=== PATIENT | male | born 1970 | race Two or more races ===

== ENCOUNTER 2017-03-30 15:28 | Inpatient (IN) | payer MEDICAID ==
[~2017-03-30] VITALS: Ht 167.6 cm; Wt 68.8 kg
[2017-03-30] MEDS ORDERED: SODIUM CHLORIDE FLUSH 10ML SYR IVF ONE ×2 (16:00→16:30)
[2017-03-30 16:12] LABS: HEMATOCRIT 30.3 % (39.2-51.8); HEMOGLOBIN 9.8 g/dL (13.7-18.0); WHITE BLOOD COUNT 13.6 x10^3/uL (3.4-10)
[2017-03-30 16:22] LABS: ASPARTATE AMINO TRANSFERASE 99 U/L (15-37); BLOOD UREA NITROGEN 21 mg/dL (7-18)
[2017-03-30] MEDS ORDERED: SODIUM CHLORIDE 0.9% 1,000 ML IV ONE (16:39)
[2017-03-30] MEDS ORDERED: SODIUM CHLORIDE 0.9% 1,000ML IVBOLUS ONE ×2 (17:30→19:30)
[2017-03-30] MEDS ORDERED: POTASSIUM CHLORIDE 40 MEQ in SODIUM CHLORIDE 0.9% 500 ML IV ONE (17:30)
[2017-03-30] MEDS ORDERED: CEFTRIAXONE PMX 1GM/50ML 50 ML IVPB ONE (17:30)
[2017-03-30] MEDS ORDERED: CEFTRIAXONE PMX 1GM/50ML 50 ML ONE (17:30)
[2017-03-30] MEDS ORDERED: NS + 20MEQ KCL 1,000 ML IV SCH (17:38)
[2017-03-30] MEDS: CEFTRIAXONE PMX 1GM/50ML 50 ML IV SCH (17:53)
[2017-03-30] MEDS ORDERED: LORazepam 0.5MG TABLET PO PRN (18:00)
[2017-03-30] MEDS ORDERED: morphine SULFATE 10 MG/ML, 1ML IVPush PRN (18:00)
[2017-03-30] MEDS ORDERED: LORazepam 2 MG/ML, 1ML IV PRN ×3 (18:00)
[2017-03-30] MEDS ORDERED: ALBUMIN HUMAN 25% 50 ML IV ONE (18:00)
[2017-03-30] MEDS ORDERED: LORazepam 1MG TABLET PO PRN ×2 (18:00)
[2017-03-30] MEDS ORDERED: DOCUSATE 100 MG CAPSULE PO PRN (18:00)
[2017-03-30] MEDS ORDERED: LIDOCAINE 1%, 20ML ONE (19:08)
[2017-03-30 21:12] VITALS: BP 93/44
[2017-03-30 21:31] VITALS: BP 89/56
[2017-03-30] MEDS: LACTULOSE 20 GM/30 ML UDC PO SCH (22:46)
[2017-03-30] MEDS: FAMOTIDINE 20 MG TABLET PO SCH (22:46)
[2017-03-30] MEDS: ONDANSETRON 2MG/ML, 2ML IVPush PRN (22:53)
[2017-03-30 23:29] VITALS: BP 89/66
[2017-03-31] VITALS (13 sets, daily range): BP systolic 77–97; BP diastolic 44–74
[2017-03-31] MEDS ORDERED: SODIUM CHLORIDE 0.9% 1,000ML IVBOLUS ONE ×2 (04:00→22:00)
[2017-03-31 06:35] LABS: HEMOGLOBIN 7.4 g/dL (13.7-18.0); WHITE BLOOD COUNT 12.7 x10^3/uL (3.4-10)
[2017-03-31 06:42] LABS: ASPARTATE AMINO TRANSFERASE 86 U/L (15-37); BLOOD UREA NITROGEN 35 mg/dL (7-18)
[2017-03-31 06:48] LABS: HEMATOCRIT 22.9 % (39.2-51.8)
[2017-03-31 07:07] LABS: DIFF TOTAL CELLS COUNTED 100 CELL DIFF
[2017-03-31 07:08] LABS: ANISOCYTOSIS 1+; VERIFY COUNTS? YES
[2017-03-31 07:09] LABS: POLYCHROMASIA 1+
[2017-03-31 07:10] LABS: HYPOCHROMIA 2+
[2017-03-31 07:11] LABS: POIKILOCYTOSIS 1+
[2017-03-31] MEDS: FOLIC ACID 1 MG TABLET PO SCH (09:00)
[2017-03-31] MEDS: THIAMINE 100MG TABLET PO SCH (09:00)
[2017-03-31] MEDS: MULTIVITAMIN 1 TABLET PO SCH (09:00)
[2017-03-31] MEDS: LACTULOSE 20 GM/30 ML UDC PO SCH ×2 (09:00→20:08)
[2017-03-31] MEDS: FAMOTIDINE 20 MG TABLET PO SCH (09:00)
[2017-03-31] MEDS: PANTOPRAZOLE 80 MG in SODIUM CHLORIDE 0.9% 100 ML IV SCH ×2 (10:00→20:26)
[2017-03-31] MEDS ORDERED: EPHEDRINE 50 MG/ML, 1ML IVPush PRN (10:00)
[2017-03-31] MEDS ORDERED: hydrALAzine 20 MG/ML, 1ML IV PRN (10:00)
[2017-03-31] MEDS ORDERED: LABETALOL 5MG/ML, 20ML IV PRN (10:00)
[2017-03-31] MEDS ORDERED: METOPROLOL 1 MG/ML, 5ML IV PRN (10:00)
[2017-03-31] MEDS ORDERED: ONDANSETRON 2MG/ML, 2ML IVPush PRN (10:00)
[2017-03-31] MEDS ORDERED: ALBUTEROL SULFATE 2.5 MG/3 ML NPPB PRN (10:00)
[2017-03-31] MEDS ORDERED: METOCLOPRAMIDE 5 MG/ML, 2ML IV PRN (10:00)
[2017-03-31] MEDS ORDERED: OCTREOTIDE 50 MCG/ML, 1ML (0.05MG/ML) IVPush ONE (10:00)
[2017-03-31] MEDS ORDERED: FENTANYL PF 100 MCG/2ML IV PRN (10:00)
[2017-03-31] MEDS ORDERED: PANTOPRAZOLE 80 MG in SODIUM CHLORIDE 0.9% 50 ML IV ONE (10:00)
[2017-03-31] MEDS ORDERED: FENTANYL PF 250 MCG/5ML ONE (10:21)
[2017-03-31] MEDS ORDERED: LORazepam 2 MG/ML, 1ML IVPush PRN (12:00)
[2017-03-31] MEDS: PHYTONADIONE 10 MG/ML, 1ML SQ SCH (12:00)
[2017-03-31] MEDS: OCTREOTIDE 500 MCG in SODIUM CHLORIDE 0.9% 249 ML IV SCH ×2 (12:45→20:26)
[2017-03-31] MEDS: NS + 20MEQ KCL 1,000 ML IV SCH (15:09)
[2017-03-31] MEDS ORDERED: EPINEPHRINE SYRINGE 0.1 MG/ML, 10ML ONE (15:22)
[2017-03-31] MEDS ORDERED: EPINEPHRINE 1 MG/ML, 1ML ONE (16:06)
[2017-03-31] MEDS ORDERED: SUCCINYLCHOLINE 20 MG/ML, 10ML ONE (16:06)
[2017-03-31] MEDS ORDERED: PROPOFOL 10 MG/ML, 20ML ONE (16:06)
[2017-03-31] MEDS: CEFTRIAXONE PMX 1GM/50ML 50 ML IV SCH (17:48)
[2017-03-31 18:03] LABS: HEMATOCRIT 26.5 % (39.2-51.8); HEMOGLOBIN 8.6 g/dL (13.7-18.0)
[2017-03-31 22:16] LABS: HEMATOCRIT 25.8 % (39.2-51.8); HEMOGLOBIN 8.5 g/dL (13.7-18.0)
[2017-04-01 00:02] VITALS: BP 72/39
[2017-04-01 00:17] VITALS: BP 88/61
[2017-04-01 00:22] VITALS: BP 81/51
[2017-04-01 03:31] VITALS: BP 75/51
[2017-04-01 04:00] VITALS: BP 86/51
[2017-04-01] MEDS ORDERED: NOREPINEPHRINE 4 MG in SODIUM CHLORIDE 0.9% 246 ML IV PRN (04:00)
[2017-04-01] MEDS: PANTOPRAZOLE 80 MG in SODIUM CHLORIDE 0.9% 100 ML IV SCH ×2 (05:55→16:00)
[2017-04-01] MEDS: OCTREOTIDE 500 MCG in SODIUM CHLORIDE 0.9% 249 ML IV SCH ×2 (05:55→16:00)
[2017-04-01 06:39] LABS: HEMATOCRIT 30.8 % (39.2-51.8); HEMOGLOBIN 10.2 g/dL (13.7-18.0); WHITE BLOOD COUNT 11.4 x10^3/uL (3.4-10)
[2017-04-01 06:51] LABS: BLOOD UREA NITROGEN 21 mg/dL (7-18)
[2017-04-01 06:56] LABS: ASPARTATE AMINO TRANSFERASE 103 U/L (15-37)
[2017-04-01] MEDS: NS + 20MEQ KCL 1,000 ML IV SCH (08:00)
[2017-04-01] MEDS ORDERED: [UNRECOGNIZED DRUG - OTHER] IV ONE (08:30)
[2017-04-01] MEDS ORDERED: FOLIC ACID IV ONE (08:30)
[2017-04-01] MEDS ORDERED: MVI ADULT IV ONE (08:30)
[2017-04-01] MEDS ORDERED: THIAMINE IV ONE (08:30)
[2017-04-01] MEDS ORDERED: POTASSIUM CHLORIDE IV ONE (08:30)
[2017-04-01] MEDS: LACTULOSE 20 GM/30 ML UDC PO SCH ×2 (08:57→20:31)
[2017-04-01] MEDS: FOLIC ACID 1 MG TABLET PO SCH (09:00)
[2017-04-01] MEDS: MULTIVITAMIN 1 TABLET PO SCH (09:00)
[2017-04-01] MEDS: THIAMINE 100MG TABLET PO SCH (09:00)
[2017-04-01] MEDS ORDERED: POTASSIUM CHLORIDE 10% 40 MEQ/30 ML UDC PO SCH (09:00)
[2017-04-01] MEDS: PHYTONADIONE 10 MG/ML, 1ML SQ SCH (09:03)
[2017-04-01] MEDS: OXYcodone IR 5MG TABLET PO PRN ×3 (15:37→20:31)
[2017-04-01] MEDS: CEFTRIAXONE PMX 1GM/50ML 50 ML IV SCH (18:47)
[2017-04-01 19:47] VITALS: BP 94/51
[2017-04-02 02:00] VITALS: BP 98/68
[2017-04-02] MEDS: PANTOPRAZOLE 80 MG in SODIUM CHLORIDE 0.9% 100 ML IV SCH ×2 (03:02→13:02)
[2017-04-02] MEDS: OCTREOTIDE 500 MCG in SODIUM CHLORIDE 0.9% 249 ML IV SCH ×2 (03:03→13:02)
[2017-04-02] MEDS: OXYcodone IR 5MG TABLET PO PRN ×2 (03:28→10:23)
[2017-04-02 05:55] LABS: BLOOD UREA NITROGEN 13 mg/dL (7-18)
[2017-04-02 06:00] LABS: ASPARTATE AMINO TRANSFERASE 94 U/L (15-37)
[2017-04-02 06:31] LABS: HEMATOCRIT 31.6 % (39.2-51.8); HEMOGLOBIN 10.3 g/dL (13.7-18.0); WHITE BLOOD COUNT 8.9 x10^3/uL (3.4-10)
[2017-04-02 08:00] VITALS: BP 99/68
[2017-04-02 08:40] VITALS: BP 99/66
[2017-04-02] MEDS: LACTULOSE 20 GM/30 ML UDC PO SCH ×2 (10:19→20:33)
[2017-04-02] MEDS: THIAMINE 100MG TABLET PO SCH (10:24)
[2017-04-02] MEDS: PHYTONADIONE 10 MG/ML, 1ML SQ SCH (10:24)
[2017-04-02] MEDS: MULTIVITAMIN 1 TABLET PO SCH (10:24)
[2017-04-02] MEDS: FOLIC ACID 1 MG TABLET PO SCH (10:24)
[2017-04-02 12:14] VITALS: BP 97/65
[2017-04-02] MEDS ORDERED: LIDOCAINE 1%, 20ML ONE (15:39)
[2017-04-02 17:20] VITALS: BP 104/69
[2017-04-02] MEDS: OMEPRAZOLE 20 MG CAPSULE.DR PO SCH (18:26)
[2017-04-02] MEDS: CEFTRIAXONE PMX 1GM/50ML 50 ML IV SCH (18:38)
[2017-04-02 18:45] LABS: CELLS COUNTED 81; DILUTION 1; WBC SQUARES COUNTED 9
[2017-04-02 19:46] VITALS: BP 92/61
[2017-04-03 02:35] VITALS: BP 92/57
[2017-04-03 05:44] LABS: HEMATOCRIT 31.2 % (39.2-51.8); HEMOGLOBIN 10.2 g/dL (13.7-18.0)
[2017-04-03 05:48] LABS: ASPARTATE AMINO TRANSFERASE 87 U/L (15-37); BLOOD UREA NITROGEN 8 mg/dL (7-18)
[2017-04-03 07:47] VITALS: BP 94/67
[2017-04-03] MEDS: MULTIVITAMIN 1 TABLET PO SCH (07:50)
[2017-04-03] MEDS: OMEPRAZOLE 20 MG CAPSULE.DR PO SCH ×2 (07:50→16:29)
[2017-04-03] MEDS: THIAMINE 100MG TABLET PO SCH (07:50)
[2017-04-03] MEDS: LACTULOSE 20 GM/30 ML UDC PO SCH ×2 (07:50→20:30)
[2017-04-03] MEDS: FOLIC ACID 1 MG TABLET PO SCH (07:50)
[2017-04-03] MEDS: OXYcodone IR 5MG TABLET PO PRN (11:45)
[2017-04-03 13:01] VITALS: BP 103/67
[2017-04-03] MEDS: FUROSEMIDE 40 MG TABLET PO SCH (13:03)
[2017-04-03] MEDS: SPIRONOLACTONE 100 MG TABLET PO SCH (13:03)
[2017-04-03] MEDS: CEFTRIAXONE PMX 1GM/50ML 50 ML IV SCH (17:34)
[2017-04-03 21:05] VITALS: BP 98/65
[2017-04-04 00:51] VITALS: BP 92/56
[2017-04-04 07:10] VITALS: BP 97/69
[2017-04-04] MEDS: OMEPRAZOLE 20 MG CAPSULE.DR PO SCH ×2 (07:38→17:16)
[2017-04-04] MEDS: SPIRONOLACTONE 100 MG TABLET PO SCH (07:38)
[2017-04-04] MEDS: ONDANSETRON 2MG/ML, 2ML IVPush PRN (07:38)
[2017-04-04] MEDS: MULTIVITAMIN 1 TABLET PO SCH (07:39)
[2017-04-04] MEDS: THIAMINE 100MG TABLET PO SCH (07:39)
[2017-04-04] MEDS: LACTULOSE 20 GM/30 ML UDC PO SCH ×2 (07:39→20:32)
[2017-04-04] MEDS: FUROSEMIDE 40 MG TABLET PO SCH (07:39)
[2017-04-04] MEDS: FOLIC ACID 1 MG TABLET PO SCH (07:39)
[2017-04-04] MEDS: OXYcodone IR 5MG TABLET PO PRN ×2 (12:20→17:17)
[2017-04-04 15:40] VITALS: BP 104/73
[2017-04-04] MEDS: CEFTRIAXONE PMX 1GM/50ML 50 ML IV SCH (18:23)
[2017-04-04 20:10] VITALS: BP 94/63
[2017-04-05 03:30] VITALS: BP 90/66
[2017-04-05] MEDS: OXYcodone IR 5MG TABLET PO PRN ×3 (03:41→21:00)
[2017-04-05] MEDS: PROPRANOLOL 10 MG TABLET PO SCH (05:46)
[2017-04-05 05:54] LABS: ASPARTATE AMINO TRANSFERASE 124 U/L (15-37); BLOOD UREA NITROGEN 6 mg/dL (7-18)
[2017-04-05 06:01] LABS: HEMATOCRIT 32.2 % (39.2-51.8); HEMOGLOBIN 10.7 g/dL (13.7-18.0)
[2017-04-05 07:32] VITALS: BP 88/57
[2017-04-05 07:48] VITALS: BP 93/57
[2017-04-05] MEDS: FUROSEMIDE 40 MG TABLET PO SCH (07:49)
[2017-04-05] MEDS: SPIRONOLACTONE 100 MG TABLET PO SCH (07:49)
[2017-04-05] MEDS: THIAMINE 100MG TABLET PO SCH (07:49)
[2017-04-05] MEDS: FOLIC ACID 1 MG TABLET PO SCH (07:50)
[2017-04-05] MEDS: OMEPRAZOLE 20 MG CAPSULE.DR PO SCH ×2 (07:50→17:57)
[2017-04-05] MEDS: LACTULOSE 20 GM/30 ML UDC PO SCH ×2 (07:50→20:55)
[2017-04-05] MEDS: MULTIVITAMIN 1 TABLET PO SCH (07:50)
[2017-04-05] MEDS ORDERED: POTASSIUM CHLORIDE 20 MEQ TAB.ER.PRT PO ONE (11:00)
[2017-04-05 14:54] VITALS: BP 101/72
[2017-04-05] MEDS: CEFTRIAXONE PMX 1GM/50ML 50 ML IV SCH ×2 (17:58→18:43)
[2017-04-05 19:23] VITALS: BP 86/56
[2017-04-05 20:52] VITALS: BP 98/63
[2017-04-06] VITALS (7 sets, daily range): BP systolic 84–120; BP diastolic 51–68
[2017-04-06] MEDS: PROPRANOLOL 10 MG TABLET PO SCH (05:16)
[2017-04-06 05:47] LABS: HEMATOCRIT 32.6 % (39.2-51.8); HEMOGLOBIN 10.9 g/dL (13.7-18.0); WHITE BLOOD COUNT 11.8 x10^3/uL (3.4-10)
[2017-04-06 06:02] LABS: BLOOD UREA NITROGEN 4 mg/dL (7-18)
[2017-04-06] MEDS ORDERED: LIDOCAINE 1%, 20ML ONE (07:23)
[2017-04-06 08:20] LABS: CYTOLOGY BODY FLUID RECD INTO PATHOLOGY; CYTOLOGY BODY FLUID SOURCE PERITONEAL FLUID
[2017-04-06 09:11] LABS: CELLS COUNTED 69; DILUTION 1; WBC SQUARES COUNTED 9
[2017-04-06] MEDS: FUROSEMIDE 40 MG TABLET PO SCH (09:15)
[2017-04-06] MEDS: MULTIVITAMIN 1 TABLET PO SCH (09:15)
[2017-04-06] MEDS: FOLIC ACID 1 MG TABLET PO SCH (09:15)
[2017-04-06] MEDS: OMEPRAZOLE 20 MG CAPSULE.DR PO SCH ×2 (09:15→16:07)
[2017-04-06] MEDS: THIAMINE 100MG TABLET PO SCH (09:15)
[2017-04-06] MEDS: SPIRONOLACTONE 100 MG TABLET PO SCH (09:15)
[2017-04-06] MEDS: LACTULOSE 20 GM/30 ML UDC PO SCH ×2 (09:15→21:07)
[2017-04-06] MEDS: ALBUMIN HUMAN 25% 100 ML IV SCH ×3 (09:16→21:08)
[2017-04-06] MEDS ORDERED: MAGNESIUM SULFATE PMX 2GM/50ML 50 ML IV ONE (10:00)
[2017-04-06] MEDS ORDERED: POTASSIUM CHLORIDE 40 MEQ in SODIUM CHLORIDE 0.9% 500 ML IV ONE (10:00)
[2017-04-06] MEDS: CEFTRIAXONE PMX 1GM/50ML 50 ML IV SCH (18:08)
[2017-04-07 02:45] VITALS: BP 90/60
[2017-04-07] MEDS: ALBUMIN HUMAN 25% 100 ML IV SCH ×4 (04:13→21:07)
[2017-04-07 04:26] VITALS: BP 90/58
[2017-04-07] MEDS: PROPRANOLOL 10 MG TABLET PO SCH (04:31)
[2017-04-07 05:43] LABS: ASPARTATE AMINO TRANSFERASE 101 U/L (15-37); BLOOD UREA NITROGEN 4 mg/dL (7-18)
[2017-04-07 05:45] LABS: HEMATOCRIT 29.6 % (39.2-51.8); HEMOGLOBIN 9.9 g/dL (13.7-18.0); WHITE BLOOD COUNT 8.2 x10^3/uL (3.4-10)
[2017-04-07 08:22] VITALS: BP 92/62
[2017-04-07] MEDS: LACTULOSE 20 GM/30 ML UDC PO SCH ×2 (08:49→21:08)
[2017-04-07] MEDS: THIAMINE 100MG TABLET PO SCH (08:49)
[2017-04-07] MEDS: OXYcodone IR 5MG TABLET PO PRN ×3 (08:49→17:32)
[2017-04-07] MEDS: FUROSEMIDE 40 MG TABLET PO SCH (08:49)
[2017-04-07] MEDS: SPIRONOLACTONE 100 MG TABLET PO SCH (08:49)
[2017-04-07] MEDS: OMEPRAZOLE 20 MG CAPSULE.DR PO SCH ×2 (08:49→17:32)
[2017-04-07] MEDS: FOLIC ACID 1 MG TABLET PO SCH (08:49)
[2017-04-07] MEDS: MULTIVITAMIN 1 TABLET PO SCH (08:49)
[2017-04-07 14:24] VITALS: BP 101/62
[2017-04-07] MEDS: CEFTRIAXONE PMX 1GM/50ML 50 ML IV SCH (18:24)
[2017-04-07 19:37] VITALS: BP 101/61
[2017-04-08 00:43] VITALS: BP 100/62
[2017-04-08 05:21] LABS: HEMATOCRIT 29.8 % (39.2-51.8); HEMOGLOBIN 9.8 g/dL (13.7-18.0); WHITE BLOOD COUNT 7.8 x10^3/uL (3.4-10)
[2017-04-08 05:35] LABS: BLOOD UREA NITROGEN 3 mg/dL (7-18)
[2017-04-08 05:39] LABS: ASPARTATE AMINO TRANSFERASE 80 U/L (15-37)
[2017-04-08] MEDS: PROPRANOLOL 10 MG TABLET PO SCH (06:00)
[2017-04-08] MEDS: OMEPRAZOLE 20 MG CAPSULE.DR PO SCH ×2 (06:34→17:14)
[2017-04-08 07:42] VITALS: BP 102/66
[2017-04-08 09:04] VITALS: BP 108/71
[2017-04-08] MEDS: FUROSEMIDE 40 MG TABLET PO SCH (09:05)
[2017-04-08] MEDS: SPIRONOLACTONE 100 MG TABLET PO SCH (09:05)
[2017-04-08] MEDS: THIAMINE 100MG TABLET PO SCH (09:06)
[2017-04-08] MEDS: MULTIVITAMIN 1 TABLET PO SCH (09:06)
[2017-04-08] MEDS: FOLIC ACID 1 MG TABLET PO SCH (09:06)
[2017-04-08] MEDS: LACTULOSE 20 GM/30 ML UDC PO SCH ×2 (09:06→20:31)
[2017-04-08] MEDS: POTASSIUM CHLORIDE 20 MEQ TAB.ER.PRT PO SCH ×2 (09:56→13:53)
[2017-04-08] MEDS: OXYcodone IR 5MG TABLET PO PRN ×2 (11:37→20:31)
[2017-04-08 12:23] VITALS: BP 111/75
[2017-04-08] MEDS: CEFTRIAXONE PMX 1GM/50ML 50 ML IV SCH (17:17)
[2017-04-08 20:10] VITALS: BP 94/62
[2017-04-09 02:10] VITALS: BP 94/60
[2017-04-09 05:36] LABS: HEMATOCRIT 31.5 % (39.2-51.8); HEMOGLOBIN 10.3 g/dL (13.7-18.0); WHITE BLOOD COUNT 9.5 x10^3/uL (3.4-10)
[2017-04-09 06:04] LABS: ASPARTATE AMINO TRANSFERASE 80 U/L (15-37); BLOOD UREA NITROGEN 3 mg/dL (7-18)
[2017-04-09] MEDS: PROPRANOLOL 10 MG TABLET PO SCH (06:12)
[2017-04-09 06:30] VITALS: BP 106/75
[2017-04-09] MEDS: FOLIC ACID 1 MG TABLET PO SCH (08:03)
[2017-04-09] MEDS: FUROSEMIDE 40 MG TABLET PO SCH (08:03)
[2017-04-09] MEDS: MULTIVITAMIN 1 TABLET PO SCH (08:03)
[2017-04-09] MEDS: OMEPRAZOLE 20 MG CAPSULE.DR PO SCH ×2 (08:03→17:01)
[2017-04-09] MEDS: POTASSIUM CHLORIDE 20 MEQ TAB.ER.PRT PO SCH (08:03)
[2017-04-09] MEDS: THIAMINE 100MG TABLET PO SCH (08:03)
[2017-04-09] MEDS: LACTULOSE 20 GM/30 ML UDC PO SCH ×2 (08:03→21:30)
[2017-04-09] MEDS: SPIRONOLACTONE 100 MG TABLET PO SCH (08:03)
[2017-04-09] MEDS: OXYcodone IR 5MG TABLET PO PRN ×3 (10:22→22:05)
[2017-04-09 13:45] VITALS: BP 95/62
[2017-04-09] MEDS: CEFTRIAXONE PMX 1GM/50ML 50 ML IV SCH (17:57)
[2017-04-09] MEDS ORDERED: FUROSEMIDE 20 MG/2 ML IV ONE (18:00)
[2017-04-09 18:14] VITALS: BP 100/65
[2017-04-09 19:42] VITALS: BP 91/58
[2017-04-10] VITALS (14 sets, daily range): BP systolic 87–106; BP diastolic 42–67
[2017-04-10] MEDS: OXYcodone IR 5MG TABLET PO PRN ×4 (02:17→21:02)
[2017-04-10] MEDS: PROPRANOLOL 10 MG TABLET PO SCH (05:19)
[2017-04-10] MEDS: SPIRONOLACTONE 100 MG TABLET PO SCH (08:49)
[2017-04-10] MEDS: THIAMINE 100MG TABLET PO SCH (08:49)
[2017-04-10] MEDS: OMEPRAZOLE 20 MG CAPSULE.DR PO SCH ×2 (08:50→16:49)
[2017-04-10] MEDS: FOLIC ACID 1 MG TABLET PO SCH (08:50)
[2017-04-10] MEDS: MULTIVITAMIN 1 TABLET PO SCH (08:50)
[2017-04-10] MEDS: FUROSEMIDE 40 MG TABLET PO SCH (08:50)
[2017-04-10] MEDS: LACTULOSE 20 GM/30 ML UDC PO SCH ×2 (08:50→21:01)
[2017-04-10] MEDS: POTASSIUM CHLORIDE 20 MEQ TAB.ER.PRT PO SCH (08:50)
[2017-04-10] MEDS: CEFTRIAXONE PMX 1GM/50ML 50 ML IV SCH (17:24)
[2017-04-10] MEDS: DIPHENHYDRAMINE 50 MG CAPSULE PO PRN (23:31)
[2017-04-11] VITALS (7 sets, daily range): BP systolic 82–99; BP diastolic 49–70
[2017-04-11] MEDS: OXYcodone IR 5MG TABLET PO PRN ×2 (03:39→14:33)
[2017-04-11] MEDS: PROPRANOLOL 10 MG TABLET PO SCH (06:00)
[2017-04-11 06:24] LABS: ASPARTATE AMINO TRANSFERASE 57 U/L (15-37); BLOOD UREA NITROGEN 6 mg/dL (7-18)
[2017-04-11 06:25] LABS: HEMATOCRIT 26.7 % (39.2-51.8); HEMOGLOBIN 8.9 g/dL (13.7-18.0)
[2017-04-11] MEDS: OMEPRAZOLE 20 MG CAPSULE.DR PO SCH ×2 (07:30→17:51)
[2017-04-11] MEDS: SPIRONOLACTONE 100 MG TABLET PO SCH (07:50)
[2017-04-11] MEDS: FUROSEMIDE 40 MG TABLET PO SCH (07:51)
[2017-04-11] MEDS: POTASSIUM CHLORIDE 20 MEQ TAB.ER.PRT PO SCH (08:00)
[2017-04-11] MEDS: FOLIC ACID 1 MG TABLET PO SCH (08:02)
[2017-04-11] MEDS: MULTIVITAMIN 1 TABLET PO SCH (08:02)
[2017-04-11] MEDS: THIAMINE 100MG TABLET PO SCH (08:02)
[2017-04-11] MEDS: LACTULOSE 20 GM/30 ML UDC PO SCH ×2 (08:02→21:06)
[2017-04-11] MEDS ORDERED: MIDAZOLAM 1 MG/ML, 5ML ONE (10:27)
[2017-04-11] MEDS ORDERED: FENTANYL PF 100 MCG/2ML ONE (10:27)
[2017-04-11] MEDS ORDERED: FLUMAZENIL 0.1 MG/1 ML, 5ML ONE (10:28)
[2017-04-11] MEDS ORDERED: NALOXONE 1 MG/ML, 2ML ONE (10:28)
[2017-04-11] MEDS ORDERED: LIDOCAINE 1%, 20ML ONE (10:28)
[2017-04-11] MEDS ORDERED: POTASSIUM CHLORIDE 20 MEQ TAB.ER.PRT PO ONE (10:30)
[2017-04-11] MEDS: CEFTRIAXONE PMX 1GM/50ML 50 ML IV SCH (17:51)
[2017-04-11] MEDS: DIPHENHYDRAMINE 50 MG CAPSULE PO PRN (21:07)
[2017-04-12 03:07] VITALS: BP 96/49
[2017-04-12 05:32] LABS: BLOOD UREA NITROGEN 6 mg/dL (7-18); TOTAL IRON BINDING CAPACITY 166 mcg/dL (250-450)
[2017-04-12] MEDS: PROPRANOLOL 10 MG TABLET PO SCH (06:05)
[2017-04-12] MEDS: OXYcodone IR 5MG TABLET PO PRN ×4 (06:07→17:04)
[2017-04-12 07:29] VITALS: BP 94/65
[2017-04-12] MEDS: OMEPRAZOLE 20 MG CAPSULE.DR PO SCH ×2 (07:44→17:04)
[2017-04-12] MEDS: POTASSIUM CHLORIDE 20 MEQ TAB.ER.PRT PO SCH (07:44)
[2017-04-12] MEDS: FOLIC ACID 1 MG TABLET PO SCH (10:15)
[2017-04-12] MEDS: FUROSEMIDE 40 MG TABLET PO SCH (10:15)
[2017-04-12] MEDS: SPIRONOLACTONE 100 MG TABLET PO SCH (10:15)
[2017-04-12] MEDS: MULTIVITAMIN 1 TABLET PO SCH (10:16)
[2017-04-12] MEDS: LACTULOSE 20 GM/30 ML UDC PO SCH ×2 (10:16→20:56)
[2017-04-12] MEDS: THIAMINE 100MG TABLET PO SCH (10:16)
[2017-04-12 14:12] VITALS: BP 91/53
[2017-04-12 20:00] VITALS: BP 95/69
[2017-04-12] MEDS: DIPHENHYDRAMINE 50 MG CAPSULE PO PRN (20:56)
[2017-04-12] MEDS: RIFAXIMIN 550 MG TABLET PO SCH (20:56)
[2017-04-13 02:52] VITALS: BP 114/67
[2017-04-13] MEDS: OXYcodone IR 5MG TABLET PO PRN ×4 (03:17→19:43)
[2017-04-13] MEDS: PROPRANOLOL 10 MG TABLET PO SCH ×2 (05:08→22:40)
[2017-04-13 05:57] LABS: HEMATOCRIT 30.9 % (39.2-51.8); HEMOGLOBIN 9.9 g/dL (13.7-18.0); WHITE BLOOD COUNT 10.2 x10^3/uL (3.4-10)
[2017-04-13 06:02] LABS: BLOOD UREA NITROGEN 6 mg/dL (7-18)
[2017-04-13 08:15] VITALS: BP 94/62
[2017-04-13] MEDS: LACTULOSE 20 GM/30 ML UDC PO SCH ×2 (08:46→19:43)
[2017-04-13] MEDS: MULTIVITAMIN 1 TABLET PO SCH (08:46)
[2017-04-13] MEDS: OMEPRAZOLE 20 MG CAPSULE.DR PO SCH ×2 (08:46→17:53)
[2017-04-13] MEDS: POTASSIUM CHLORIDE 20 MEQ TAB.ER.PRT PO SCH (08:46)
[2017-04-13] MEDS: FOLIC ACID 1 MG TABLET PO SCH (08:47)
[2017-04-13] MEDS: FUROSEMIDE 40 MG TABLET PO SCH (08:47)
[2017-04-13] MEDS: THIAMINE 100MG TABLET PO SCH (08:47)
[2017-04-13] MEDS: RIFAXIMIN 550 MG TABLET PO SCH ×2 (08:47→19:43)
[2017-04-13] MEDS: SPIRONOLACTONE 100 MG TABLET PO SCH (08:47)
[2017-04-13 14:35] VITALS: BP 99/62
[2017-04-13] MEDS ORDERED: POTASSIUM CHLORIDE 20 MEQ TAB.ER.PRT PO ONE (15:30)
[2017-04-13 20:00] VITALS: BP 97/51
[2017-04-14 06:30] VITALS: BP 104/61
[2017-04-14] MEDS: OXYcodone IR 5MG TABLET PO PRN ×2 (08:10→12:28)
[2017-04-14] MEDS: POTASSIUM CHLORIDE 20 MEQ TAB.ER.PRT PO SCH (10:32)
[2017-04-14] MEDS: OMEPRAZOLE 20 MG CAPSULE.DR PO SCH (10:32)
[2017-04-14] MEDS: FUROSEMIDE 40 MG TABLET PO SCH (10:33)
[2017-04-14] MEDS: RIFAXIMIN 550 MG TABLET PO SCH (10:33)
[2017-04-14] MEDS: FOLIC ACID 1 MG TABLET PO SCH (10:33)
[2017-04-14] MEDS: MULTIVITAMIN 1 TABLET PO SCH (10:33)
[2017-04-14] MEDS: SPIRONOLACTONE 100 MG TABLET PO SCH (10:33)
[2017-04-14] MEDS: THIAMINE 100MG TABLET PO SCH (10:33)
[2017-04-14] MEDS: LACTULOSE 20 GM/30 ML UDC PO SCH (10:33)
[2017-04-14] MEDS ORDERED: OXYC5TAB3 PO (10:51)
[2017-04-14] MEDS ORDERED: POTA20TA6 PO (10:51)
[2017-04-14] MEDS ORDERED: RIFA550T4 PO (10:51)
[2017-04-14] MEDS ORDERED: SPIR100T PO (10:51)
[2017-04-14] MEDS ORDERED: FOLI-17 PO (10:51)
[2017-04-14] MEDS ORDERED: FURO40TA6 PO (10:51)
[2017-04-14] MEDS ORDERED: PROP10TA PO (10:51)
[2017-04-14] MEDS ORDERED: LACT20SO13 PO (10:51)
== END 2017-04-14 13:10 | disposition hospice, home (50) | DRG 871 ==
LOC: ED 16:47 → SUATTDRO 17:22 → EDIP 17:28 → 4EST 20:37 → 4WST 03-31 13:15 → CCU 03-31 14:21 → 4EST 04-01 14:48 → 4WST 04-02 05:08 → 4EST 04-02 05:40 → 4WST 04-02 05:41 → 4NOR 04-02 16:51
PROVIDERS: ADMIT Family Medicine; ATTEND Family Medicine
PROC: 0W9G30Z Drainage of Peritoneal Cavity with Drainage Device, Percutaneous Approach (ICD-10-PCS; 2017-03-30)
PROC: 0DB78ZX Excision of Stomach, Pylorus, Via Natural or Artificial Opening Endoscopic, Diagnostic (ICD-10-PCS; 2017-03-31)
PROC: 30233L1 Transfusion of Nonautologous Fresh Plasma into Peripheral Vein, Percutaneous Approach (ICD-10-PCS; principal; 2017-04-01)
PROC: 30233N1 Transfusion of Nonautologous Red Blood Cells into Peripheral Vein, Percutaneous Approach (ICD-10-PCS; 2017-04-01)
PROC: 30233K1 Transfusion of Nonautologous Frozen Plasma into Peripheral Vein, Percutaneous Approach (ICD-10-PCS; 2017-04-01)
PROC: 0W9G30Z Drainage of Peritoneal Cavity with Drainage Device, Percutaneous Approach (ICD-10-PCS; 2017-04-02)
PROC: 0W9G30Z Drainage of Peritoneal Cavity with Drainage Device, Percutaneous Approach (ICD-10-PCS; 2017-04-06)
PROC: 0W9G30Z Drainage of Peritoneal Cavity with Drainage Device, Percutaneous Approach (ICD-10-PCS; 2017-04-11)
DX: A41.9 Sepsis, unspecified organism (principal); E43 Unspecified severe protein-calorie malnutrition; I85.01 Esophageal varices with bleeding; K22.11 Ulcer of esophagus with bleeding; D68.4 Acquired coagulation factor deficiency; K26.9 Duodenal ulcer, unspecified as acute or chronic, without hemorrhage or perforation; K29.71 Gastritis, unspecified, with bleeding; E87.1 Hypo-osmolality and hyponatremia; K76.6 Portal hypertension; F10.239 Alcohol dependence with withdrawal, unspecified; N30.90 Cystitis, unspecified without hematuria; K70.31 Alcoholic cirrhosis of liver with ascites; E86.9 Volume depletion, unspecified; D64.9 Anemia, unspecified; Z68.24 Body mass index [BMI] 24.0-24.9, adult; E87.6 Hypokalemia; F17.210 Nicotine dependence, cigarettes, uncomplicated; F32.9 Major depressive disorder, single episode, unspecified; K31.89 Other diseases of stomach and duodenum; K70.40 Alcoholic hepatic failure without coma; N28.1 Cyst of kidney, acquired; Z51.5 Encounter for palliative care; Z66 Do not resuscitate; Z87.19 Personal history of other diseases of the digestive system; Z91.14 Patient's other noncompliance with medication regimen
CPT/HCPCS: 36415; 49083; 49418; 71010; 76700; 76937; 80048; 80053; 81001; 82042; 82105; 82140; 82533; 83540; 83550; 83605; 83615; 83690; 83735; 83880; 84100; 84157; 85014; 85018; 85025; 85610; 85730; 86480; 86850; 86900; 86923; 87040; 87070; 87075; 87081; 87086; 87205; 88112; 88305; 89051; 93005; 96365; 99156; 99157; J0171; J0696; J2250; J2354; J2405; J2704; J3010; J3411; J3430; J3480; J3490; P9047; C1729; C9113; J0330; J1940; J2060; J2270; J2310; J3475; J7030; J7040; J7050; P9016; P9017